=== PATIENT | male | born 2000 | race Caucasian/White ===

== ENCOUNTER 2022-01-25 15:48 | Outpatient (CLI) | payer OTHER, SELFPAY | END 2022-01-25 15:49 | disposition home or self-care (01) | LOC: SPT 15:49 | PROVIDERS: Visit Provider Nurse Practitioner Family | DX: Z46.89 Encounter for fitting and adjustment of other specified devices (principal); M25.561 Pain in right knee | CPT/HCPCS: 73560; 73565; 97760; L1812 ==

== ENCOUNTER → 2022-06-20 13:14 | Outpatient (BNVA) | payer OTHER, SELFPAY | PROVIDERS: Referring Provider Emergency Medicine Emergency Medical Services; Visit Provider Nurse Practitioner Family | DX: M25.361 Other instability, right knee (principal) | CPT/HCPCS: 73565; 99213 ==